=== PATIENT | male | born 1995 | race Caucasian/White ===

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

== ENCOUNTER 2017-12-21 15:51 | Emergency (ER) | payer SELFPAY ==
[2017-12-21 15:54] VITALS: BP 122/67; PULSE 84; TEMP 98; BMI 32.3
--- NOTE | 2017-12-21 16:07 | PDOC ---
History of Present Illness - General Chief Complaint: Bite Stated Complaint: BITE Time Seen by Provider: 12/21/17 15:56 History Source: Patient Exam Limitations: No Limitations - History of Present Illness Initial Comments: Patient is a 22-year-old male who states that he was stung by a bee on his left knee, right foot and right upper extremity 4 hours prior to arrival. He denies tongue edema, denies airway compromise, denies wheezing. Denies history of anaphylaxis to bees. Patient denies pain. Denies any aggravating or relieving factors. 12/21/17 16:01 Past History - Travel Traveled outside of the country in the last 30 days: No Close contact w/someone who was outside of country & ill: No - Past Medical History Allergies/Adverse Reactions: Allergies Allergy/AdvReac Type Severity Reaction Status Date / Time No Known Allergies Allergy Verified 11/27/16 17:32 Home Medications: Ambulatory Orders Emtricitabine/Tenofovir (Tdf) [Truvada 200 mg-300 mg Tablet] 1 each PO DAILY # 28 tablet 11/27/16 Raltegravir [Isentress] 400 mg PO BID #46 tab 11/27/16 COPD: No - Immunization History Immunization Up to Date: Yes - Suicide/Smoking/Psychosocial Hx Smoking History: Never smoked Hx Alcohol Use: No Drug/Substance Use Hx: No Substance Use Type: None Review of Systems - Review of Systems Able to Perform ROS?: Yes Constitutional: No: Chills, Fever Integumentary: No: Erythema, Pruritus All Other Systems: Reviewed and Negative *Physical Exam - Vital Signs Last Vital Signs Temp Pulse Resp BP Pulse Ox 98.0 F 84 18 122/67 99 12/21/17 15:52 12/21/17 15:52 12/21/17 15:52 12/21/17 15:52 12/21/17 15:52 - Physical Exam Comments: Constitutional: VS stated, pt appears in no apparent distress; sitting in chair. Skin: Warm and dry. Intact, no lesions or excoriations. No signs of secondary infection to the areas he states he was stung. Head: Normocephalic; atraumatic Eyes: conjunctiva pink without injection or discharge. Throat: Oropharynx with pink and moist mucosa. Dentition good. No pharyngeal edema; erythema or exudate. Tongue normal, no fasciculations. Airway Patent. Hypoglossal area is soft. Uvula is midline. Neck: Supple, non-tender, with full ROM, trachea midline, no anterior/posterior cervical chain lymphadenopathy, thyroid nonpalpable. No stridor or bruits. Chest: Normal AP diameter, symmetrical excursions bilaterally, no retractions or bulging of the intercostal spaces. No pain or tenderness noted on palpation. Lungs: Bilateral breath sounds clear upon auscultation. No adventitious breath sounds. Heart: Regular rate and rhythm, S1/S2 auscultated. No murmurs, rubs, or gallops. No visible pulsations, heaves, or lifts on precordium. Musculoskeletal: Moves all extremities without difficulty. Neurologic: Awake, alert. Conversation fluent. Psychiatric: Appropriate affect. 12/21/17 16:03 Medical Decision Making - Medical Decision Making 12/21/17 16:06 Pt has no signs of anaphylaxis. No signs of secondary infection. *DC/Admit/Observation/Transfer Diagnosis at time of Disposition: Bee sting Qualifiers: Encounter type: initial encounter Injury intent: undetermined intent Qualified Code(s): T63.444A - Toxic effect of venom of bees, undetermined, initial encounter - Discharge Dispostion Disposition: HOME Condition at time of disposition: Stable Decision to Admit order: No - Referrals - Patient Instructions Printed Discharge Instructions: DI for Insect Bites and Stings - Post Discharge Activity
== END 2017-12-21 16:58 | disposition home or self-care (01) ==
LOC: JERFT 15:51
DX: T63.444A Toxic effect of venom of bees, undetermined, initial encounter (principal)
CPT/HCPCS: 99281-25

== ENCOUNTER 2018-06-27 03:27 | Emergency (ER) | payer BC ==
[2018-06-27 04:17] VITALS: BP 115/86; PULSE 80; TEMP 98.3; BMI 29.8
--- NOTE | 2018-06-27 04:20 | PDOC ---
Attending Attestation - HPI HPI: 06/27/18 04:33 Patient is a 22 year old male with no significant past medical history who presents to the ED with complaints of right shoulder pain that began earlier this afternoon. Patient reports experiencing right shoulder pain that he states has gradually increased in intensity over time prompting him to come into the ED for further evaluation. 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 Denies chest pain, Sob. Denies nausea, vomiting. Denies fevers, chills. Denies contact with sick individuals, out of state travelling. Denies constipation, constipation. Denies any other symptoms. Allergies: None Social history: No smoking. No alcohol. No illicit drugs. Surgical history: None PMD: Dr. Oliver - Physicial Exam PE: 06/27/18 04:33 Agree with residents Physical Exam. <Ryan Chan - Last Filed: 06/27/18 04:33> - Resident Resident Name: Som Roldan - ED Attending Attestation I have performed the following: I have examined & evaluated the patient, The case was reviewed & discussed with the resident, I agree w/resident's findings & plan - Medical Decision Making 06/27/18 04:35 22-year-old male with pain to the 22-year-old male with pain to the right shoulder right upper back with no associated trauma Exam consistent with trapezius spasm Toradol, lidocaine and Valium 5 mg by mouth given in the emergency department Patient will be discharged with short-term volume as well as anti- inflammatories and Lidoderm patches Patient advised to refrain from heavy lifting for several days <Bridgette Hastings - Last Filed: 06/27/18 04:38>
[2018-06-27] MEDS ORDERED: diazePAM 5 MG TABLET PO ONE (04:21)
[2018-06-27] MEDS ORDERED: LIDOCAINE 5% TOPICAL PATCH TP ONE (04:21)
[2018-06-27] MEDS ORDERED: KETOROLAC TROMETHAMINE 60 MG/2 ML VIAL IM ONE (04:21)
[2018-06-27] MEDS ORDERED: LIDOCAINE 5% TOPICAL PATCH ONE (04:26)
[2018-06-27] MEDS ORDERED: diazePAM 5 MG TABLET ONE (04:26)
[2018-06-27] MEDS ORDERED: KETOROLAC TROMETHAMINE 60 MG/2 ML VIAL ONE (04:26)
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
[2018-06-27] MEDS ORDERED: LIDOCAINE PATCH REMOVAL MC SCH (22:00)
== END 2018-06-27 04:55 | disposition home or self-care (01) ==
LOC: JER 03:27
PROC: 3E0233Z Introduction of Anti-inflammatory into Muscle, Percutaneous Approach (ICD-10-PCS; principal; 2018-06-27)
DX: M25.511 Pain in right shoulder (principal)
CPT/HCPCS: 99281-25

== ENCOUNTER 2018-12-18 21:03 | Emergency (ER) | payer BC ==
--- NOTE | 2018-12-18 21:48 | PDOC ---
Attending Attestation - Resident Resident Name: Rodney Palacioson - ED Attending Attestation I have performed the following: I have examined & evaluated the patient, The case was reviewed & discussed with the resident, I agree w/resident's findings & plan - HPI HPI: 12/19/18 00:04 see resident hpi - Physicial Exam PE: 12/19/18 00:04 agree with resident exam - Medical Decision Making 12/19/18 00:04 23 yo male s/p possible near syncope vs seizure ekg, labs, cxr and CT scan of the brain unremarkable pt currently eating doritos and asymptomatic plan for follow up with cardiology as scheduled and neurology pt given seizure precaution instructions
[2018-12-18 22:17] VITALS: BMI 29.3
[2018-12-18] MEDS ORDERED: ACETAMINOPHEN 1000 MG/100 ML VIAL (NON FORMULARY) IVPB ONE (22:26)
[2018-12-18] MEDS ORDERED: SODIUM CHLORIDE 1,000 ML IV STA (22:26)
[2018-12-18] MEDS ORDERED: ACETAMINOPHEN INJECTION 100 ML IVPB ONE (22:39)
--- NOTE | 2018-12-18 22:40 | PDOC ---
History of Present Illness - General Chief Complaint: Seizure Stated Complaint: SEIZURE Time Seen by Provider: 12/18/18 21:47 - History of Present Illness Initial Comments: 12/18/18 22:35 23 yo M with no significant pmh who p/w witnessed convulsions. Patient reports ambulating from outside his house towards his couch in house at approximately 7: 30 PM this evening. Patient states that he was walking towards couch and he felt his legs get weak, lightheadedness, SOB, when he fell to his knees. He then does not recall events following. Patient father at bedside reports walking over to patient and witnessing the patient violent, moving all four extremities, with eye partially open. Symptoms lasted 1 minute and resolved spontaneously. Ambulatory following event. Patient denies urinary incontinence. Does not recall head trauma. Patient now with right sided, dull, headache, non radiating without aura, photo/phonophobia, lacrimation. Patient denies h/o prior convulsion. Patient reports ongoing tremors, and palpitations/racing heart waking him from sleep, intermittently for 3-4 months. Scheduled to be evaluated by cardiology. Patient denies palpitations, cough, wheezing, orthopena, PND, leg swelling/pain , N/V, F,C, CP, urinary complaints, hematuria, BPR, abdominal pain, diarrhea, constipation, weakness, sensory changes. PMHx: as noted above ROS: as noted SHx: Denies Etoh, IVDA, tobacco use Allergies: NKDA Past History - Past Medical History Allergies/Adverse Reactions: Allergies Allergy/AdvReac Type Severity Reaction Status Date / Time No Known Allergies Allergy Verified 12/18/18 22:18 Home Medications: Ambulatory Orders NK [No Known Home Medication] 12/18/18 COPD: No - Immunization History Immunization Up to Date: Yes - Suicide/Smoking/Psychosocial Hx Smoking History: Current some day smoker Have you smoked in the past 12 months: Yes Information on smoking cessation initiated: Yes Hx Alcohol Use: Yes (Arnel) Drug/Substance Use Hx: Yes (Jermaine) Substance Use Type: None Review of Systems - Review of Systems Comments:: 12/18/18 23:00 GENERAL/CONSTITUTIONAL: No fever or chills. No weakness. HEAD, EYES, EARS, NOSE AND THROAT: No change in vision. No ear pain or discharge. No sore throat. CARDIOVASCULAR: No chest pain or shortness of breath RESPIRATORY: No cough, wheezing, or hemoptysis. GASTROINTESTINAL: No nausea, vomiting, diarrhea or constipation. GENITOURINARY: No dysuria, frequency, or change in urination. MUSCULOSKELETAL: No joint or muscle swelling or pain. No neck or back pain. SKIN: No rash NEUROLOGIC: + Lightheadedness, headache. No vertigo, or change in strength/ sensation. ENDOCRINE: No increased thirst. No abnormal weight change HEMATOLOGIC/LYMPHATIC: No anemia, easy bleeding, or history of blood clots. ALLERGIC/IMMUNOLOGIC: No hives or skin allergy. *Physical Exam - Vital Signs Last Vital Signs Temp Pulse Resp BP Pulse Ox 98.6 F 80 19 125/106 H 100 12/18/18 21:20 12/18/18 21:20 12/18/18 21:20 12/18/18 21:20 12/18/18 21:20 - Physical Exam Comments: 12/18/18 23:00 GENERAL: Awake, alert, and fully oriented, in no acute distress HEAD: No signs of trauma, normocephalic, atraumatic EYES: PERRLA, EOMI, sclera anicteric, conjunctiva clear ENT: Auricles normal inspection, hearing grossly normal, nares patent, oropharynx clear without exudates. Moist mucosa NECK: Normal ROM, supple, no lymphadenopathy, JVD, or masses LUNGS: No distress, speaks full sentences, clear to auscultation bilaterally HEART: Regular rate and rhythm, normal S1 and S2, no murmurs, rubs or gallops, peripheral pulses normal and equal bilaterally. ABDOMEN: Soft, nontender, normoactive bowel sounds. No guarding, no rebound. No masses EXTREMITIES : Normal inspection, Normal range of motion, no edema. No clubbing or cyanosis NEUROLOGICAL: Cranial nerves II through XII grossly intact. Normal speech, normal gait, no focal sensorimotor deficits. Neg nystagmus. Absent dysmetria on FTN, or PAKO. SKIN: Warm, Dry, normal turgor, no rashes or lesions noted ED Treatment Course - LABORATORY CBC & Chemistry Diagram: 12/18/18 22:25 12/18/18 22:25 - RADIOLOGY Radiology Studies Ordered: Category Date Time Status HEAD CT WITHOUT CONTRAST [CT] Stat CT Scan 12/18/18 22:17 Ordered CHEST PA & LAT [RAD] Stat Radiology 12/18/18 22:13 Ordered Medical Decision Making - Medical Decision Making 12/18/18 22:57 23 yo M with no significant BIBEMS with witnessed LOC, convulsions. Vitals wnl, AF, A&OX3. Physical exam unremarkable. No evidence closed head injury. Neg evidence basilar skull fracture. Neg C-spine ttp. Nexus negative C-spine. Will evaluate for hypoglycemia, cardiac dyssarythmias, electrolyte abnml, metabolic and toxic derangements, acid-base disturbances, infection. Ed Course: 12/18/18 23:15 EKG: NSR with absent KIRSTEN, STD. Nml interval duration and axis. Nml R wave progression. Absent Q waves. Laboratory Tests 12/18/18 12/18/18 12/18/18 22:20 22:25 22:25 WBC 9.2 Hgb 15.3 Hct 45.8 Plt Count 238 Sodium Potassium BUN Creatinine Troponin I < 0.02 Urine Color Yellow Urine Appearance Clear Urine Ketones Negative Urine Blood Negative Urine Nitrite Negative Ur Leukocyte Esterase Negative 12/18/18 22:25 WBC Hgb Hct Plt Count Sodium 138 Potassium 4.3 BUN 11.4 Creatinine 1.1 Troponin I Urine Color Urine Appearance Urine Ketones Urine Blood Urine Nitrite Ur Leukocyte Esterase UDS negative Pain controlled with Tylenol Patient without seizure in ED 12/18/18 23:54 CTH: Unremarkable 12/19/18 00:03 Patient stable for d/c with return precautions. Advised to f/u with neurology. *DC/Admit/Observation/Transfer Diagnosis at time of Disposition: Seizure-like activity - Referrals Referrals: [facility]all [facility] [Primary Care Provider] - Luis Molina MD [Staff Physician] - - Patient Instructions Printed Discharge Instructions: DI for Syncope in Adults (Fainting), DI for Seizure Disorder -- Adult Additional Instructions: Please return to the emergency department with any new or worsening symptoms or concerns. Please follow up with your neurologist and primary care physician within 72 hours. - Post Discharge Activity
[2018-12-18 22:42] LABS: BASO % 0.5 % (0-2.0); EOS % 0.8 % (0-4.5); HEMATOCRIT 45.8 % (35.4-49); HEMOGLOBIN 15.3 GM/dL (11.7-16.9); LYMPH % 20.9 % (8-40); MCH 30.5 pg (25.7-33.7); MCHC 33.5 g/dl (32.0-35.9); MEAN PLT VOLUME 7.6 fl (7.5-11.1); MONO % 8.1 % (3.8-10.2); NEUT % 69.7 % (42.8-82.8); PLATELET COUNT 238 K/MM3 (134-434); RBC 5.04 M/mm3 (4.00-5.60); RDW 13.9 % (11.9-15.9); WHITE BLOOD COUNT 9.2 K/mm3 (4.0-10.0)
[2018-12-18 22:50] LABS: PH,URINE 6.5 (5.0-8.0); URINE APPEARANCE CLEAR; URINE BILIRUBIN NEGATIVE (NEGATIVE); URINE COLOR YELLOW; URINE GLUCOSE (UA) NEGATIVE (NEGATIVE); URINE KETONE NEGATIVE (NEGATIVE); URINE LEUK ESTERASE NEGATIVE (NEGATIVE); URINE NITRITE NEGATIVE (NEGATIVE); URINE PROTEIN NEGATIVE (NEGATIVE); URINE UROBILINOGEN 0.2 mg/dL (0.2-1.0)
[2018-12-18 23:03] LABS: COCAINE, UR NEGATIVE ng/ml (CUTOFF=300); METHADONE, UR NEGATIVE ng/ml (CUTOFF=300); OPIATES, URI NEGATIVE ng/ml (CUTOFF=300); PHENCYCLIDINE,URINE NEGATIVE ng/ml (CUTOFF=25); URINE AMPHETAMINES NEGATIVE ng/ml (CUTOFF=500); URINE BARBITURATES NEGATIVE ng/ml (CUTOFF=200); URINE BENZODIAZEPINES NEGATIVE ng/ml (CUTOFF=200)
[2018-12-18 23:11] LABS: ALBUMIN 4.6 g/dl (3.4-5.0); BILIRUBIN,TOTAL 0.6 mg/dL (0.2-1); BLOOD UREA NITROGEN 11.4 mg/dL (7-18); CALCIUM 10.1 mg/dL (8.5-10.1); CREATININE 1.1 mg/dL (0.55-1.3); POTASSIUM 4.3 mmol/L (3.5-5.1); TOT PROT 8.2 g/dl (6.4-8.2)
[2018-12-19 00:34] VITALS: BP 116/80; PULSE 77; TEMP 97.6
--- NOTE | 2018-12-19 11:25 | EKG ---
Test Reason : Blood Pressure : / mmHG Vent. Rate : 067 BPM Atrial Rate : 067 BPM P-R Int : 168 ms QRS Dur : 098 ms QT Int : 400 ms P-R-T Axes : 060 033 020 degrees QTc Int : 422 ms NORMAL SINUS RHYTHM NORMAL ECG NO PREVIOUS ECGS AVAILABLE Confirmed by LEW ZAVALA, NYLA ([id number]) on 12/19/2018 11:25:40 AM Referred By: Confirmed By:NYLA HACKETT MD
== END 2018-12-19 00:35 | disposition home or self-care (01) ==
LOC: JER 21:03
PROC: 3E0337Z Introduction of Electrolytic and Water Balance Substance into Peripheral Vein, Percutaneous Approach (ICD-10-PCS; principal; 2018-12-18)
PROC: 3E033NZ Introduction of Analgesics, Hypnotics, Sedatives into Peripheral Vein, Percutaneous Approach (ICD-10-PCS; 2018-12-18)
DX: R56.9 Unspecified convulsions (principal)
CPT/HCPCS: 36415; 70450-TC; 71046-TC-FY; 80053; 80307; 81003; 82550; 82553; 84484; 85025; 93005; 93010; 99285-25; J0131; J7030

== ENCOUNTER 2019-05-23 19:00 | Emergency (ER) | payer BC ==
--- NOTE | 2019-05-23 19:07 | PDOC ---
Rapid Medical Evaluation Time Seen by Provider: 05/23/19 19:07 Medical Evaluation: Allergies Allergy/AdvReac Type Severity Reaction Status Date / Time No Known Allergies Allergy Verified 12/18/18 22:18 05/23/19 19:07 CC: epigastric pain that worsens while supine. relieved with Maalox PE: epigastric tenderness Orders: ekg, maalox, pepcid, viscous lidocaine Patient will proceed to ED for continued evaluation. 05/23/19 19:08 05/23/19 19:10 Discharge Disposition - Diagnosis Epigastric pain - Referrals - Patient Instructions - Post Discharge Activity
[2019-05-23 19:10] VITALS: BP 115/83; PULSE 96; TEMP 98.3; BMI 25.8
[2019-05-23] MEDS ORDERED: FAMOTIDINE 10 MG TABLET PO ONE (19:11)
[2019-05-23] MEDS ORDERED: LIDOCAINE VISCOUS 2% ORAL/TOP 20 ML UNIT-DOSE CUP MM ONE (19:11)
[2019-05-23] MEDS ORDERED: MAG HYDROX/AL HYDROX/SIMETH 30 ML UNIT-DOSE CUP PO ONE (19:11)
--- NOTE | 2019-05-23 20:10 | PDOC ---
History of Present Illness - General Chief Complaint: Pain Stated Complaint: VOMITING/STOMACH DISCOMFORT Time Seen by Provider: 05/23/19 19:07 History Source: Patient Exam Limitations: No Limitations Past History - Past Medical History Allergies/Adverse Reactions: Allergies Allergy/AdvReac Type Severity Reaction Status Date / Time No Known Allergies Allergy Verified 05/23/19 19:10 Home Medications: Ambulatory Orders Famotidine [Pepcid] 20 mg PO BID #30 tablet 05/23/19 COPD: No - Immunization History Immunization Up to Date: Yes - Psycho Social/Smoking Cessation Hx Smoking History: Never smoked Have you smoked in the past 12 months: Yes Hx Alcohol Use: Yes (Socialy) Drug/Substance Use Hx: Yes (Huka) Substance Use Type: None *Physical Exam - Vital Signs Last Vital Signs Temp Pulse Resp BP Pulse Ox 98.3 F 96 H 18 115/83 98 05/23/19 19:07 05/23/19 19:07 05/23/19 19:07 05/23/19 19:07 05/23/19 19:07 - Physical Exam General Appearance: No: Apparent Distress Respiratory/Chest: positive: Lungs Clear, Normal Breath Sounds. negative: Respiratory Distress Cardiovascular: positive: Regular Rhythm, Regular Rate, S1, S2. negative: Murmur Gastrointestinal/Abdominal: positive: Normal Bowel Sounds, Soft. negative: Tender, Distended, Guarding, Rebound Musculoskeletal: negative: CVA Tenderness Neurologic: positive: Alert Medical Decision Making - Medical Decision Making 23-year-old male with no significant past medical history presents with epigastric burning rating up to chest for 4 days. Had some one small episode of NBNB emesis yesterday. Has been able to keep down p.o. today. Tried taking questionable Maalox from pharmacy which helped with symptoms for a few hours. Denies prior abdominal surgeries. Denies drinking, smoking, drug use. Denies fever, shortness of breath, diarrhea, urinary symptoms. Likely GERD Given Pepcid/Maalox/Viscous lidocaine Dietary changes discussed Patient has PCP with whom he can follow-up with 05/23/19 20:05 Discharge - Discharge Information Problems reviewed: Yes Clinical Impression/Diagnosis: GERD (gastroesophageal reflux disease) Qualifiers: Esophagitis presence: esophagitis presence not specified Qualified Code(s): K21.9 - Gastro-esophageal reflux disease without esophagitis Condition: Stable Disposition: HOME - Admission No - Additional Discharge Information Prescriptions: Famotidine [Pepcid] 20 mg PO BID #30 tablet Prescription Drug Monitoring Program (I-STOP) results: I-STOP not reviewed - Follow up/Referral Referrals: Wesley Oliver MD [Primary Care Provider] - 2 Days - Patient Discharge Instructions Patient Printed Discharge Instructions: DI for Gastroesophageal Reflux Disease (GERD), GERD Diet Additional Instructions: Thank you for choosing [facility]. It was a pleasure taking care of you. Please refrain from eating oily, spicy, fried foods Refrain from laying down immediately after eating Take Pepcid as directed Follow-up with your doctor in 2 days Return to the Emergency Department if your symptoms worsen or persist or have other concerning symptoms. - Post Discharge Activity
[2019-05-23] MEDS ORDERED: MAG HYDROX/AL HYDROX/SIMETH 30 ML UNIT-DOSE CUP ONE (20:14)
[2019-05-23] MEDS ORDERED: FAMOTIDINE 20 MG TABLET ONE (20:14)
[2019-05-23] MEDS ORDERED: FAMOTIDINE 20 MG/50 ML IVPB 20 MG/50 ML MG IVPB ONE (20:14)
[2019-05-23] MEDS ORDERED: LIDOCAINE VISCOUS 2% ORAL/TOP 20 ML UNIT-DOSE CUP ONE (20:17)
--- NOTE | 2019-05-23 21:07 | PDOC ---
*Physical Exam - Vital Signs Last Vital Signs Temp Pulse Resp BP Pulse Ox 98.3 F 96 H 18 115/83 98 05/23/19 19:07 05/23/19 19:07 05/23/19 19:07 05/23/19 19:07 05/23/19 19:07 ED Treatment Course - Medications Given in the ED: ED Medications Discontinued Medications Generic Name Dose Route Start Last Admin Trade Name Alyson PRN Reason Stop Dose Admin Al Hydroxide/Mg Hydroxide 30 ml 05/23/19 19:11 05/23/19 20:34 Mylanta Oral Suspension - PO 05/23/19 19:12 30 ml ONCE ONE Administration Famotidine 20 mg 05/23/19 19:11 05/23/19 20:34 Acid Investment Specialist PO 05/23/19 19:12 20 mg ONCE ONE Administration Lidocaine HCl 20 ml 05/23/19 19:11 05/23/19 20:34 Xylocaine 2% Viscous Oral - MM 05/23/19 19:12 20 ml ONCE ONE Administration Medical Decision Making - Medical Decision Making 05/23/19 21:06 Case reviewed, was available for consultation during clinical course Discharge - Discharge Information Problems reviewed: Yes Clinical Impression/Diagnosis: GERD (gastroesophageal reflux disease) Qualifiers: Esophagitis presence: esophagitis presence not specified Qualified Code(s): K21.9 - Gastro-esophageal reflux disease without esophagitis Condition: Stable Disposition: HOME - Additional Discharge Information Prescriptions: Famotidine [Pepcid] 20 mg PO BID #30 tablet - Follow up/Referral Referrals: Wesley Oliver MD [Primary Care Provider] - 2 Days - Patient Discharge Instructions Patient Printed Discharge Instructions: DI for Gastroesophageal Reflux Disease (GERD), GERD Diet Additional Instructions: Thank you for choosing [facility]. It was a pleasure taking care of you. Please refrain from eating oily, spicy, fried foods Refrain from laying down immediately after eating Take Pepcid as directed Follow-up with your doctor in 2 days Return to the Emergency Department if your symptoms worsen or persist or have other concerning symptoms. - Post Discharge Activity
== END 2019-05-23 20:35 | disposition home or self-care (01) ==
LOC: JER 19:00
DX: K21.9 Gastro-esophageal reflux disease without esophagitis (principal)
CPT/HCPCS: 99284-25

== ENCOUNTER 2019-11-04 19:16 | Emergency (ER) | payer BC ==
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
[2019-11-04 19:37] VITALS: BP 140/84; PULSE 66; TEMP 97.2; BMI 29.0
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
== END 2019-11-04 21:04 | disposition home or self-care (01) ==
LOC: JERFT 19:16 → JER 19:16 → JERFT 21:04
DX: M25.562 Pain in left knee (principal)
CPT/HCPCS: 73562-TC-LT-FY; 73610-TC-RT-FY; 73630-TC-RT-FY; 99284-25

== ENCOUNTER 2020-06-19 21:40 | Emergency (ER) | payer BC ==
[2020-06-19] MEDS ORDERED: HALOPERIDOL LACTATE 5 MG/ML IM ONE (22:12)
[2020-06-19] MEDS ORDERED: MIDAZOLAM HCL 2 MG/2 ML SINGLE DOSE VIAL IVPUSH ONE (22:12)
[2020-06-19] MEDS ORDERED: LORazepam 2 MG/ML SDV VIAL IVPUSH ONE (22:15)
[2020-06-19 22:30] VITALS: BMI 28.4
[2020-06-19 22:52] LABS: BASO % 0.6 % (0-2.0); EOS % 0.5 % (0-4.5); HEMATOCRIT 42.9 % (35.4-49); HEMOGLOBIN 14.5 GM/dL (11.7-16.9); LYMPH % 22.3 % (8-40); MCH 30.9 pg (25.7-33.7); MCHC 33.9 g/dl (32.0-35.9); MEAN CELL VOLUME 91.2 fl (80-96); MEAN PLT VOLUME 8.5 fl (7.5-11.1); MONO % 7.9 % (3.8-10.2); NEUT % 68.7 % (42.8-82.8); PLATELET COUNT 203 K/MM3 (134-434); RDW 12.7 % (11.9-15.9); WHITE BLOOD COUNT 7.9 K/mm3 (4.0-10.0)
[2020-06-19 22:59] LABS: INR 1.22 (0.83-1.09); PROTHROMBIN TIME (PATIENT) 14.9 SEC (9.7-13.0)
[2020-06-19 23:02] LABS: ACTIVATED PTT 31.8 SECONDS (25.2-36.5)
[2020-06-19 23:07] LABS: POTASSIUM 3.3 mmol/L (3.5-5.1)
[2020-06-19 23:09] LABS: CALCIUM 8.9 mg/dL (8.5-10.1)
[2020-06-19 23:10] LABS: ALBUMIN 4.4 g/dl (3.4-5.0); BLOOD UREA NITROGEN 11.4 mg/dL (7-18)
[2020-06-19 23:13] LABS: CREATININE 1.2 mg/dL (0.55-1.3)
[2020-06-19 23:15] LABS: BILIRUBIN,TOTAL 0.5 mg/dL (0.2-1)
[2020-06-20] MEDS ORDERED: KCL 10 MEQ IVPB 10 MEQ/100 ML INFUS.BAG IVPB SCH (00:15)
[2020-06-20] MEDS ORDERED: POTASSIUM CHLORIDE TABS 20 MEQ TABLET.ER (FP) PO ONE ×2 (00:21→00:23)
[2020-06-20 01:07] LABS: METHADONE, UR NEGATIVE ng/ml (CUTOFF=300); PHENCYCLIDINE,URINE NEGATIVE ng/ml (CUTOFF=25)
[2020-06-20 01:28] LABS: COCAINE, UR NEGATIVE ng/ml (CUTOFF=300); OPIATES, URI NEGATIVE ng/ml (CUTOFF=300); URINE AMPHETAMINES NEGATIVE ng/ml (CUTOFF=500); URINE BARBITURATES NEGATIVE ng/ml (CUTOFF=200); URINE BENZODIAZEPINES POSITIVE ng/ml (CUTOFF=200)
[2020-06-20 07:23] VITALS: BP 112/61; PULSE 80; TEMP 97.9
[2020-06-20 19:56] LABS: MAGNESIUM 2.1 mg/dL (1.8-2.4)
== END 2020-06-20 07:32 | disposition home or self-care (01) ==
LOC: JER 21:40
PROC: 3E023NZ Introduction of Analgesics, Hypnotics, Sedatives into Muscle, Percutaneous Approach (ICD-10-PCS; principal; 2020-06-19)
PROC: 3E033NZ Introduction of Analgesics, Hypnotics, Sedatives into Peripheral Vein, Percutaneous Approach (ICD-10-PCS; 2020-06-19)
PROC: 3E033NZ Introduction of Analgesics, Hypnotics, Sedatives into Peripheral Vein, Percutaneous Approach (ICD-10-PCS; 2020-06-19)
DX: F10.129 Alcohol abuse with intoxication, unspecified (principal)
CPT/HCPCS: 36415; 70450-TC; 72125-TC; 80053; 80307; 83735; 85025; 85610; 85730; 93005; 93010; 99285-25

== ENCOUNTER 2023-06-06 21:23 | Emergency (ER) | payer BC, OTHER ==
[2023-06-06 21:31] VITALS: BP 121/70; PULSE 102; RESP 18; TEMP 98.1; BMI 27.3
== END 2023-06-06 22:39 | disposition home or self-care (01) ==
LOC: JERFT 21:23
DX: R21 Rash and other nonspecific skin eruption (principal); B86 Scabies
CPT/HCPCS: 99283-25